=== PATIENT | male | born 1950 | race Caucasian/White ===

== ENCOUNTER 2018-04-12 08:03 | Emergency (ER) | payer MEDICARE ==
[2018-04-12] MEDS ORDERED: NORMAL SALINE 1000 ML 1,000 ML IV ONE (08:28)
--- NOTE | 2018-04-12 08:36 | ER Document Report ---
ED Blood Pressure Problem - General Chief Complaint: Low Blood Pressure Stated Complaint: POSSIBLE SYCOPE Time Seen by Provider: 04/12/18 08:13 Mode of Arrival: Wheelchair Information source: Patient Notes: Patient is a 67-year-old male who had just reported to radiation oncology and was waiting for his next set of radiation treatments for squamous cell lung cancer. Patient's received 18 treatments of radiation and has had a round of chemo with the last chemo being this past Sunday which he called he is on the light side. Patient states he was just sitting there and all of a sudden started getting hot and sweaty and felt some pain in his back and felt like he was going to pass out. This was noticed and an alert went out to the hospital and medical response team was dispatched to the area and brought patient back here. There was reported to me that patient's blood pressure on their arrival was 60/40. Patient states he is feeling fine now. He also states that this type of event occurred about a week ago when he was going for his chemotherapy and they were attempting to get an IV started in the did multiple attempts and could not get one started and on the next attempt patient had the same type presentation where he became hot sweaty and lightheaded and nearly passed out. The symptoms eventually faded and was explained to him why he had these feelings. Today patient states he has no correlation as to why this event happened. He states that he was feeling fine and has been feeling great throughout his course of treatments he is only been worried about when the actual skin burning would start to occur during radiation and was thinking about that as the symptoms came on today. Patient denies any cardiac history. He denies any chest pain and/or shortness of breath at this time. TRAVEL OUTSIDE OF THE [place] IN LAST 30 DAYS: No - HPI Patient complains to provider of: Low blood pressure Onset: Just prior to arrival Onset/Duration: Sudden Quality of pain: No pain Severity: None Pain Level: Denies Problem is: New problem Pt currently taking medication for problem: No Associated symptoms: Blurred vision, Dizziness, Lightheaded, Weakness Similar symptoms previously: Yes Recently seen / treated by doctor: No - Related Data Allergies/Adverse Reactions: No Known Allergies Allergy (Verified 04/12/18 08:37) Past Medical History - General Information source: Patient, [facility] Records, Outside Facility Records - Social History Smoking Status: Former Smoker Cigarette use (# per day): No Chew tobacco use (# tins/day): No Smoking Education Provided: No Frequency of alcohol use: Rare Drug Abuse: None Lives with: Family, Spouse/Significant other Family History: Reviewed & Not Pertinent Review of Systems - Review of Systems Constitutional: Malaise, Weakness, Recent illness EENT: No symptoms reported Cardiovascular: Lightheaded Respiratory: Short of breath Gastrointestinal: No symptoms reported Genitourinary: No symptoms reported Male Genitourinary: No symptoms reported Musculoskeletal: No symptoms reported Skin: No symptoms reported Hematologic/Lymphatic: No symptoms reported Neurological/Psychological: No symptoms reported, See HPI, Weakness, Loss of power -: Yes All other systems reviewed and negative Physical Exam - Vital signs Vitals: Pulse BP 67 114/70 04/12/18 08:11 04/12/18 08:11 Interpretation: Hypotensive Notes: PHYSICAL EXAMINATION: GENERAL: Well-appearing, well-nourished and in no acute distress. My examination the patient was fairly normal. Patient was not experiencing any weaknesses or any side effects from his what appeared to be a vasovagal episode. He is awake alert and oriented he is communicating without effort. He remembers the entire incident but remembers feeling really weak and run out. HEAD: Atraumatic, normocephalic. EYES: Pupils equal round and reactive to light, extraocular movements intact, sclera anicteric, conjunctiva are normal. ENT: Nares patent, oropharynx clear without exudates. Moist mucous membranes. NECK: Normal range of motion, supple without lymphadenopathy LUNGS: Breath sounds clear to auscultation bilaterally and equal. No wheezes rales or rhonchi. HEART: Regular rate and rhythm without murmurs ABDOMEN: Soft, nontender, nondistended abdomen. No guarding, no rebound. No masses appreciated. Musculoskeletal: Normal range of motion, no pitting or edema. No cyanosis. NEUROLOGICAL: Cranial nerves grossly intact. Normal speech, normal gait. Normal sensory, motor exams PSYCH: Normal mood, normal affect. SKIN: Warm, Dry, normal turgor, no rashes or lesions noted. 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 He has been checked on by me numerous times throughout the course of the day and is been acting 100% normal. Patient's labs and workup come back totally normal. I had to contact patient's oncologist and his primary care provider for further information on patient. The only abnormality we have seen here today is patient has been bradycardic. He is running in the low 50s maintained mostly in the mid 50s and occasionally has jumped up into the 60s while laying there. His blood pressures have been stable we had elected to keep patient in we run his second set of troponins while I got the information from those 2 physicians. The problem being that the physicians offices were closed due to lunches and it took a while for us to find them away from patients. First I talked to Shoshana the nurse at Dr. Aceves's office who informed me also the patient had a similar incident to this about a week ago when they were attempting IV placement and could not get it. She also informs me that the type of chemotherapy patient is on can cause a dehydration anywhere from 2 days to a week post infusion. Patient has been last infused this past Sunday so we are right on the borderline of that occurring. Even though patient's labs do not indicate such neither do his orthostatic vital signs. I was then performed also by patient does have a history of bradycardia dating back to his early as 2007 on an EKG that is in his chart. Both in 2007 and 2008 he had EKGs that were documented as bradycardia in the 50s. Given that this is not a new presentation and given we have the possible cause of the chemotherapy causing this vasovagal type of a response secondary to hypovolemia we will can discharge patient home comfortably. I have gone back in and talk to patient and and they are thrilled with this plan. Patient does have a leukopenia and so I have recommended to him to wear a mask when he goes out in the public and he said he would do so. I have asked him how much he watches his blood sugars a says he does not which I have appreciated his honesty. 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 I had a long discussion with patient also about adding on more volume of fluids but to include water. He is only drinking tea and coffee. 04/12/18 20:14 As stated earlier patient's entire physical exam was normal. He had moist mucous membranes he is not short of breath was not orthostatic patient was like nothing happened. This is why it leads me back to the point the patient was more vasovagal than anything else. Dehydration with secondary to the medication is always a possibility but the numbers and the orthostatics did not really support it that well. But patient did respond well to fluid bolus ranitidine feeling better. At this time we are going with the diagnosis of vasovagal for whatever the reason patient was vague and stating that he was just sitting there reading a magazine but none he does not remember if he was intending to go to get up to go or to sit so any of that could have led to his moment of vagal response. - Vital Signs Vital signs: Temp Pulse Resp BP Pulse Ox 55 L 12 129/62 H 97 04/12/18 09:21 04/12/18 13:41 04/12/18 13:41 04/12/18 13:41 - Laboratory Result Diagrams: 04/12/18 08:18 04/12/18 08:18 Laboratory results interpreted by me: 04/12/18 04/12/18 04/12/18 08:14 08:18 08:18 WBC 2.3 L Hgb 11.9 L Hct 36.1 L MCH 26.8 L RDW 23.5 H Plt Count 129 L Absolute Neutrophils 1.5 L BUN 22 H Glucose 148 H POC Glucose 167 H ALT 13 L 04/12/18 12:57 WBC Hgb Hct MCH RDW Plt Count Absolute Neutrophils BUN Glucose POC Glucose 115 H ALT Discharge - Discharge Clinical Impression: Near syncope, Vaso vagal episode Disposition: HOME, SELF-CARE Instructions: Dehydration ([facility]), Vasovagal Symptoms ([facility]) Additional Instructions: As we discussed you need to increase your fluids. At least at 1-2 bottles of water into your normal routine daily. Also highly suggest that you do not do any driving until the symptoms of dissipated been gone for at least a week. I can only suggest that to you and it is a safe practice. Over the weekend I would highly contemplate not doing a whole lot of anything. Monitor your blood sugars very closely and I suggest that you keep a log especially in the morning after getting up and if you do not eat breakfast I would still check it before your coffee. Take another blood sugar test in the afternoon and 1 before bed again. Keep a log of that. Also I would ask that if you have a blood pressure machine at home also take it when you wake up in the morning once in the afternoon and once before bed and keep a log. Along with this log keep your heart rate when you do your blood pressures. This will also be helpful. Should you have any problems like shortness of breath or you have repeating symptoms of what transpired today come back to the emergency room right away. Do not drive call EMS. Referrals: YESENIA ARREDONDO MD [Primary Care Provider] - Follow up as needed
[2018-04-12 08:59] LABS: ABSOLUTE LYMPHOCYTES (AUTO) 0.6 10^3/uL (0.5-4.7); ABSOLUTE MONOCYTES (AUTO) 0.1 10^3/uL (0.1-1.4); ABSOLUTE NEUT (AUTO) 1.5 10^3/uL (1.7-8.2); BASOPHILS % (AUTO) 0.9 % (0-2); EOSINOPHILS % (AUTO) 1.8 % (0-6); HEMATOCRIT 36.1 % (37.9-51.0); HEMOGLOBIN 11.9 g/dL (13.5-17.0); LYMPHOCYTES % (AUTO) 25.6 % (13-45); MEAN CORPUSCULAR HEMOGLOBIN 26.8 pg (27.0-33.4); MEAN CORPUSCULAR VOLUME 81 fl (80-97); MONOCYTES % (AUTO) 5.7 % (3-13); PLATELET COUNT 129 10^3/uL (150-450); RED BLOOD COUNT 4.45 10^6/uL (4.35-5.55); RED CELL DISTRIBUTION WIDTH 23.5 % (11.5-14.0); TOTAL CELLS COUNTED % (AUTO) 100 %; WHITE BLOOD COUNT 2.3 10^3/uL (4.0-10.5)
[2018-04-12 09:05] LABS: ALANINE AMINOTRANSFERASE 13 U/L (21-72); ALBUMIN 3.6 g/dL (3.5-5.0); ALKALINE PHOSPHATASE 64 U/L (38-126); ANION GAP 14 (5-19); ASPARTATE AMINO TRANSFERASE 20 U/L (17-59); BILIRUBIN,DIRECT 0.2 mg/dL (0.0-0.4); BILIRUBIN,TOTAL 0.7 mg/dL (0.2-1.3); BLOOD UREA NITROGEN 22 mg/dL (7-20); CARBON DIOXIDE 24 mmol/L (22-30); CHLORIDE 101 mmol/L (98-107); GLUCOSE 148 mg/dL (75-110); POTASSIUM 4.1 mmol/L (3.6-5.0); SODIUM 138.9 mmol/L (137-145); TOTAL PROTEIN 6.6 g/dL (6.3-8.2)
[2018-04-12 09:07] LABS: APPEARANCE,URINE CLEAR; BILIRUBIN,URINE NEGATIVE (NEGATIVE); COLOR,URINE YELLOW; GLUCOSE, URINE NEGATIVE (NEGATIVE); KETONES,URINE NEGATIVE (NEGATIVE); LEUKOCYTE ESTERASE,URINE NEGATIVE (NEGATIVE); NITRITE,URINE NEGATIVE (NEGATIVE); PROTEIN,URINE NEGATIVE (NEGATIVE); URINE SPECIFIC GRAVITY 1.006; UROBILINOGEN,URINE NEGATIVE mg/dL (<2.0)
--- NOTE | 2018-04-12 12:40 | EKG REPORT ---
SEVERITY:- NORMAL ECG - SINUS RHYTHM : Confirmed by: Mildred Jarrett MD 12-Apr-2018 12:40:02
[2018-04-12 14:00] VITALS: BP 129/62
== END 2018-04-12 14:22 | disposition home or self-care (01) ==
LOC: ER 08:03
DX: R55 Syncope and collapse (principal); I95.9 Hypotension, unspecified; H53.8 Other visual disturbances; R00.1 Bradycardia, unspecified; R42 Dizziness and giddiness; R53.1 Weakness; C34.90 Malignant neoplasm of unspecified part of unspecified bronchus or lung; Z79.899 Other long term (current) drug therapy; Z87.891 Personal history of nicotine dependence
CPT/HCPCS: 93005; 99284; 96360; 36415; 82962; 85025; 80053; 81001; 84484; 93010; J7030

== ENCOUNTER → 2018-07-07 | Outpatient (CLI) | payer MEDICARE ==
--- NOTE | 2018-07-08 09:30 | RADIOLOGY REPORT (SQ) ---
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 TECHNIQUE: Blood glucose level was verified. Above dose of FDG was injected intravenously. 2-D seg mented attenuation correction images were obtained from the base of the skull to the midthighs. Nonc ontrast CT images were obtained for attenuation correction and fusion with emission images. CT image s were performed without oral or intravenous contrast and are not sensitive for parenchymal lesions. A series of overlapping emission PET images were obtained. Images reviewed and manipulated at [facility] work station by the radiologist. Images stored on PACS. LIMITATIONS: None. FINDINGS: HEAD AND NECK: No areas of abnormal metabolic activity in the soft tissues of the head and neck. CHEST: The right upper lobe malignant mass now measures 3.5 x 2.7 cm with central cavitation on axial image 86/303. This has SUV of 4 (was 5.2 x 4.7 cm with SUV 25 on 01/16/2018). On the current study, there is adjacent narrowing of the right upper lobe bronchi. Peripheral airspace disease in the righ t upper lobe is present at the apex hemithorax, 7 x 3 cm in size with SUV of 4.3 to 6.0. This likely represents postobstructive pneumonia. A 1.2 x 1 cm right hilar lymph node is present with SUV of 7.8. No other metabolically active mediastinal lymph nodes are identified. ABDOMEN AND PELVIS: No areas of abnormal metabolic activity in the abdomen or pelvis. Expected physi ologic activity is present in the genitourinary system and bowel. PROXIMAL LOWER EXTREMITIES: No areas of abnormal metabolic activity in the soft tissues of the lower extremities. BONES: No abnormal metabolic activity in the visualized skeleton. ADDITIONAL CT FINDINGS: Obstructive lung disease with hyperinflation and hyperlucency. Coronary marilin ry disease. Small hiatal hernia. Degenerative disc changes in the spine OTHER: Liver background activity 2.2 SUV. Blood pool background activity 1.9 SUV. IMPRESSION: Decrease in size of right upper lobe squamous cell mass, now 3.5 x 2.7 cm in size. Right upper lobe bronchial narrowing with postobstructive pneumonia in the periphery of the right mary carmen g apex. Metabolically active right hilar lymph node may be related to infection/inflammation rather than malignancy. TECHNICAL DOCUMENTATION: JOB ID: [id number] [employer]- All Rights Reserved Reading location - IP/workstation name: [email or web address]
== END ==
LOC: RAD 14:30
PROVIDERS: ATTEND Internal Medicine Medical Oncology
DX: C34.11 Malignant neoplasm of upper lobe, right bronchus or lung (principal)
CPT/HCPCS: 78815; A9552